=== PATIENT | female | born 1965 | race Two or more races ===

== ENCOUNTER 2016-09-23 13:04 | Emergency (ER) | payer OTHER ==
[~2016-09-23] VITALS: Ht 162.6 cm; Wt 72.6 kg
[2016-09-23] MEDS ORDERED: NKM (13:09)
[2016-09-23 13:10] VITALS: BP 146/90
[2016-09-23] MEDS ORDERED: Ketorolac 30mg Inj IV ONE (13:30)
--- NOTE | 2016-09-23 15:16 | Diagnostic Imaging Report ---
Indication: TRAUMA head and neck pain, status post fall today Technique: Spiral acquisitions obtained through the cervical spine. No IV contrast utilized. Multiplanar reconstructions were generated. Total dose length product 351 mGycm. CTDIvol(s) 8 mGy Comparison: None Findings: No prevertebral soft tissue swelling. Bony alignment is normal. No acute fractures. No dislocations. There is mild degenerative disc narrowing at C5-6. The remainder of the disc spaces are preserved. At C3-4 and C4-5, there is central posterior disc protrusion which does not significantly narrow the spinal canal. No neural foraminal stenosis At C5-6, there is mild posterior disc bulge and osteophyte formation which does not significantly narrow the spinal canal. There is very mild narrowing of the right neural foramen due to uncinate hypertrophy. At the remaining levels, no significant disc bulge or protrusion, spinal stenosis, or neural foraminal narrowing. The included extraspinal soft tissues are unremarkable. Impression: No acute bony trauma Minimal degenerative changes as detailed above The CT scanner at [facility] is accredited by the [employer] and the scans are performed using protocols designed to limit radiation exposure to as low as reasonably achievable to attain images of sufficient resolution adequate for diagnostic evaluation.
--- NOTE | 2016-09-23 15:18 | Diagnostic Imaging Report ---
Indication: TRAUMA, head and neck pain status post fall today Technique: Continuous helical CT scanning of the head was performed without intravenous contrast material. Axial and coronal 5 mm sections were generated. Radiation dose was minimized using automated exposure control Dose: Total Dose Length Product - DLP [address] Dose Index - CTDIvol(s) 70.38 mGy. Comparison: None Findings: The ventricular system is normal in size and configuration. There is no shift of midline structures. No abnormal extra-axial fluid collections are noted. There is no evidence of intracerebral bleeding. No other abnormal high or low density areas are noted within the brain. Orbits are unremarkable. The sinuses are clear. The calvarium is intact Impression: Normal CT scan of the head without contrast material. The CT scanner at [facility] is accredited by the [employer] and the scans are performed using protocols designed to limit radiation exposure to as low as reasonably achievable to attain images of sufficient resolution adequate for diagnostic evaluation.
--- NOTE | 2016-09-23 15:26 | Diagnostic Imaging Report ---
Indication: Cough Technique: Two views of the chest Comparison: none Findings: Lungs and pleural spaces are clear. There is fairly extensive degenerative proliferative change of the thoracic spine. The heart size is normal Impression: No acute process
[2016-09-23] MEDS ORDERED: IBUPROFEN600 MG ORAL (16:07)
[2016-09-23] MEDS ORDERED: TRAMADOL HCL50 MG ORAL (16:07)
[2016-09-23 16:08] VITALS: BP 139/85
--- NOTE | 2016-09-23 22:03 | Emergency Room Report ---
History of Present Illness General Chief Complaint: Head, Face, Neck Trauma Source: Patient, EMS Present Illness HPI Patient was taking a shower when dry wall fell on her and she slipped and fell and hit her head on the tub. No LOC. Pain in her neck, head, and hips. More pain R hip than L. Pain 10/10 sharp and aching. Multiple sites and radiates from head to shoulders and from hips to legs. No numbness or weakness. No fevers, blood thinners, saddle numbness, oncologic problems. No chest pain, dyspnea, URI, NVD, dysuria. H/O cervical radiculopathy on the L. Allergies: Coded Allergies: No Known Allergies (Unverified , 09/23/16) Patient History Past Medical History: see triage record Social History: Denies: smoking Social History Narrative with significant other Yazidism Reviewed Nursing Documentation: PMH: Agreed, PSxH: Agreed Review of Systems All Other Systems: negative except mentioned in HPI Physical Exam Vital Signs Date Time Temp Pulse Resp B/P Pulse Ox O2 Delivery O2 Flow Rate FiO2 09/23/16 13:06 98.4 110 20 146/90 98 Room Air Sp02 EP Interpretation: reviewed, normal General Appearance: well appearing, no apparent distress, GCS 15 Head: normocephalic, other - occipital tenderness Eyes: bilateral eye EOMI, bilateral eye PERRL, bilateral eye normal inspection ENT: moist mucus membranes Neck: full range of motion, no bony tend, other - cervical collar removed, tender - L laterally Respiratory: chest non-tender, lungs clear, normal breath sounds Cardiovascular #1: regular rate, rhythm Cardiovascular #2: 2+ radial (R) Gastrointestinal: normal inspection, normal bowel sounds, non tender, no mass, non-distended Musculoskeletal: digits/nails normal, pelvis stable - but tenderness to palpation L thigh, decreased range of motion - due to pain, other - No bone tenderness of spine, tender - R shoulder, R thigh/hip, L hip Neurologic: alert, oriented x3, 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 nml as tested, DTRs symmetric, sensory intact, cerebellar normal, normal gait, speech normal Psychiatric: other - in pain Skin: normal inspection, warm/dry, other - drywall on face and other areas Medical Decision Making Diagnostic Impression: Primary Impression: Head, face & neck injury Qualified Codes: S19.9XXA - Unspecified injury of neck, initial encounter; S09.90XA - Unspecified injury of head, initial encounter; S09.93XA - Unspecified injury of face, initial encounter Additional Impressions: Multiple contusions Cervical radiculopathy ER Course Patient with non-syncopal fall after being hit with dry wall in tub. DDx: fracture, bleed, neck injury, contusions, concussion without LOC. CT head and neck indicated as well as CXR and AP pelvis. Will treat with analgesia. No bleed, fx. + cervical DJD. See x-rays below. UA not given. Improved with treatment. Patient stable for outpatient observation and treatment. Chest X-Ray Diagnostic Results EP Interpretation: Yes Findings: no consolidation, no effusion, no pneumothorax, other - spondylitis - DJD Number of Views: 1 Other X-Ray Diagnostic Results Other X-Ray Diagnostic Results : X-Ray Ordered: pelvis EP Interpretation: Yes Findings: no fractures, no dislocation, no soft tissue swelling, other - DJD Number of Views: 1 CT/MRI/US Diagnostic Results CT/MRI/US Diagnostic Results #1: Imaging Test Ordered: head Impression nl bones, brain and ST CT/MRI/US Diagnostic Results #2: Imaging Test Ordered: neck Impression sig DJD, no fractures Findings: No prevertebral soft tissue swelling. Bony alignment is normal. No acute fractures. No dislocations. There is mild degenerative disc narrowing at C5-6. The remainder of the disc spaces are preserved. At C3-4 and C4-5, there is central posterior disc protrusion which does not significantly narrow the spinal canal. No neural foraminal stenosis At C5-6, there is mild posterior disc bulge and osteophyte formation which does not significantly narrow the spinal canal. There is very mild narrowing of the right neural foramen due to uncinate hypertrophy. At the remaining levels, no significant disc bulge or protrusion, spinal stenosis, or neural foraminal narrowing. The included extraspinal soft tissues are unremarkable. Impression: No acute bony trauma Minimal degenerative changes as detailed above Status: improved Disposition: HOME, SELF-CARE Condition: Improved Scripts Tramadol Hcl* (ULTRAM*) 50 Mg Tablet 50 MG ORAL Q6H Y for For Pain, #12 TAB 0 Refills Prov: Chuy Hernandez M.D. 09/23/16 Ibuprofen* (MOTRIN*) 600 Mg Tablet 600 MG ORAL Q6H Y for For Pain, #20 TAB Prov: Chuy Hernandez M.D. 09/23/16 Departure Forms: Return to Work Return to Work in (Days): 3 Return to Work Date: Sep 26, 2016 Work Restrictions: None Patient Instructions: Concussion, Adult, Cervical Sprain, Contusion Additional Instructions: Heat, rest and massage. See your MD for physical therapy. Tylenol can also help. Have someone wake you once tonight. Chuy Hernandez M.D. Sep 23, 2016 22:02
--- NOTE | 2016-09-25 08:47 | Diagnostic Imaging Report ---
Indication: TRAUMA, pain Technique: One view of the pelvis Comparison: None Findings: No acute Fractures. No dislocations. Joint spaces are preserved. No acute process Impression:
== END 2016-09-23 16:16 | disposition home or self-care (01) ==
LOC: EDBD 13:04 → EMR 15:50
DX: S09.90XA Unspecified injury of head, initial encounter (principal); S19.9XXA Unspecified injury of neck, initial encounter; T14.8 Other injury of unspecified body region; M48.02 Spinal stenosis, cervical region; M50.21 Other cervical disc displacement, high cervical region; W18.2XXA Fall in (into) shower or empty bathtub, initial encounter; Y92.9 Unspecified place or not applicable; Y99.8 Other external cause status
CPT/HCPCS: 70450; 71020; 72125; 72170; 96374; 99284; J1885